=== PATIENT | male | born 1975 | race Caucasian/White ===

== ENCOUNTER 2023-03-10 02:59 | Inpatient (IN) | payer MEDICAID ==
[~2023-03-10] VITALS: Ht 177.8 cm; Wt 117.5 kg
[2023-03-10] MEDS ORDERED: LORazepam 2 MG TABLET PO PRN (04:00)
[2023-03-10] MEDS ORDERED: ZOLPIDEM TARTRATE 10 MG TABLET PO PRN (04:00)
[2023-03-10] MEDS ORDERED: HALOPERIDOL 5 MG TABLET PO PRN (04:00)
[2023-03-10 04:11] LABS: GLUCOMETER DEV NAME(LOC) POC.BV; POC SARS-COV2 AG, FIA NEGATIVE (NEGATIVE)
[2023-03-10 06:05] VITALS: BP 132/87; PULSE 74; RESP 17; TEMP 97.3; O2SAT 97
[2023-03-10] MEDS ORDERED: INFLUENZA VIRUS VACCINE QVS 2023-24 (6MO+)/PF 60 MCG/0.5 ML SYRINGE IM. ONE (06:45)
[2023-03-10] MEDS ORDERED: MAGNESIUM HYDROXIDE SUSPENSION 30 ML UDCUP PO PRN (07:30)
[2023-03-10] MEDS ORDERED: PETROLATUM,WHITE 28 GM JELLY TP PRN (07:30)
[2023-03-10] MEDS ORDERED: IBUPROFEN 600 MG TABLET PO PRN (07:30)
[2023-03-10] MEDS ORDERED: BACITRACIN 28 GM OINTMENT TP PRN (07:30)
[2023-03-10] MEDS ORDERED: LOPERAMIDE HCL 2 MG CAPSULE PO PRN (07:30)
[2023-03-10] MEDS ORDERED: BENZOCAINE/MENTHOL LOZENGE PO PRN (07:30)
[2023-03-10] MEDS ORDERED: MAG HYDROX/ALUMINUM HYD/SIMETH ES 30 ML SUSPENSION UDCUP PO PRN (07:30)
[2023-03-10] MEDS ORDERED: CloNIDine HCL 0.1 MG TABLET PO PRN (07:30)
[2023-03-10] MEDS ORDERED: DOCUSATE SODIUM 100 MG CAPSULE PO PRN (07:30)
[2023-03-10] MEDS ORDERED: ALBUTEROL SULFATE HFA 90 MCG/PUFF 8 GM INHALER IH PRN (07:30)
[2023-03-10] MEDS ORDERED: ONDANSETRON HCL 4 MG TABLET PO PRN (07:30)
[2023-03-10] MEDS ORDERED: OMEPRAZOLE 20 MG CAPSULE PO PRN (07:30)
[2023-03-10 09:46] VITALS: BP 136/83; PULSE 94; RESP 18; TEMP 97.7; O2SAT 99
[2023-03-10] MEDS: RisperiDONE 1 MG TABLET PO SCH (16:39)
[2023-03-10 20:41] VITALS: BP 117/77; PULSE 79; RESP 18; TEMP 97.8; O2SAT 98
[2023-03-11 07:44] LABS: BASOPHILS % (AUTO) 1.4 % (0.0-2.0); EOSINOPHILS % (AUTO) 1.6 % (1.0-6.0); HEMATOCRIT 40.7 % (41-53); HEMOGLOBIN 14.1 g/dL (13.5-17.5); LYMPHOCYTES # (AUTO) 1.3 K/uL (1.0-4.8); LYMPHOCYTES % (AUTO) 23.3 % (22.0-44.0); MEAN CORPUSCULAR HEMOGLOBIN 30.9 pg (26.0-34.0); MEAN CORPUSCULAR HGB CONC 34.8 G/dL (31.0-37.0); MEAN CORPUSCULAR VOLUME 89 fL (80-100); MONOCYTES # (AUTO) 0.3 K/uL (0.1-1.0); MONOCYTES % (AUTO) 6.3 % (2.0-9.0); NEUTROPHILS # (AUTO) 3.7 K/uL (1.8-7.7); NEUTROPHILS % (AUTO) 67.4 % (40.0-70.0); PLATELET COUNT (AUTO) 297 K/uL (150-450); RED BLOOD CELL COUNT(AUTO) 4.58 MIL/uL (4.50-5.90); RED CELL DISTRIBUTION WIDTH 14.2 % (11.5-14.5); WHITE BLOOD COUNT (AUTO) 5.4 K/uL (4.5-11.0)
[2023-03-11 07:54] LABS: HEMOGLOBIN A1C 5.3 % (3.8-5.6)
[2023-03-11 08:25] LABS: ALANINE AMINOTRANSFERASE 23 U/L (12-78); ALBUMIN 2.8 g/dL (3.4-5.0); ALKALINE PHOSPHATASE 89 U/L (46-116); ANION GAP 3 mmol/L (8-16); ASPARTATE AMINOTRANSFERASE 15 U/L (15-37); BILIRUBIN,TOTAL 0.3 mg/dL (0.1-1.0); CALCIUM, TOTAL 8.3 mg/dL (8.8-10.5); CARBON DIOXIDE 34 mmol/L (22-29); CHLORIDE 105 mmol/L (98-107); CHOL/HDL RATIO 3.8 (4.2-7.3); CHOLESTEROL 180 mg/dL (131-200); CREATININE 0.91 mg/dL (0.60-1.30); FREE T4 (FREE THYROXINE) 1.11 ng/dL (0.76-1.46); GLOMERULAR FILTR. RATE CALC > 60 mL/min (>60); GLUCOSE,RANDOM 98 mg/dL (70-110); HDL CHOLESTEROL 47 mg/dL (40-60); LDL CHOL (CALC.) 113 mg/dL (0-130); POTASSIUM 3.4 mmol/L (3.5-5.1); SODIUM SERUM 142 mmol/L (136-145); THYROID STIMULATING HORMONE 1.22 uIU/mL (0.36-3.74); TOTAL PROTEIN, SERUM 6.7 g/dL (6.4-8.2); TRIGLYCERIDES 102 mg/dL (15-150); UREA NITROGEN, BLOOD 8 mg/dL (7-18)
[2023-03-11 08:35] VITALS: BP 140/84; PULSE 81; RESP 18; TEMP 97.6; O2SAT 99
[2023-03-11] MEDS: RisperiDONE 1 MG TABLET PO SCH ×2 (08:35→16:46)
[2023-03-11 20:15] VITALS: BP 135/80; PULSE 78; RESP 19; TEMP 98; O2SAT 98
[2023-03-12 07:58] LABS: APPEARANCE,URINE TURBID (CLEAR); BILIRUBIN,URINE NEGATIVE (NEGATIVE); COLOR,URINE YELLOW (YELLOW); GLUCOSE, URINE (UA) NEGATIVE (NEGATIVE); KETONES,URINE NEGATIVE (NEGATIVE); LEUKOCYTE ESTERASE ,URINE NEGATIVE (NEGATIVE); NITRATE,URINE NEGATIVE (NEGATIVE); OCCULT BLOOD,URINE NEGATIVE (NEGATIVE); PH,URINE 7.5 (5.0-8.0); PH,URINE DRUG SCREEN 7.5 (5.0-8.0); PROTEIN,URINE TRACE mg/dL (NEGATIVE); SPECIFIC GRAVITIY, URINE 1.016 (1.003-1.030); UROBILINOGEN,URINE <=1.0 mg/dL (<=1.0)
[2023-03-12 08:02] VITALS: BP 142/97; PULSE 92; RESP 18; TEMP 98.3; O2SAT 99
[2023-03-12 08:11] LABS: ALCOHOL, URINE DRUG SCREEN NEGATIVE (NEGATIVE); AMPHET/METH SCREEN,URINE NEGATIVE (NEGATIVE); BARBITURATE SCREEN, URINE NEGATIVE (NEGATIVE); BENZODIAZEPINES SCREEN,URINE NEGATIVE (NEGATIVE); CANNABINOID SCREEN,URINE NEGATIVE (NEGATIVE); COCAINE SCREEN,URINE NEGATIVE (NEGATIVE); METHADONE SCREEN, URINE NEGATIVE (NEGATIVE); OPIATE SCREEN,URINE NEGATIVE (NEGATIVE); PHENCYCLIDINE SCREEN,URINE NEGATIVE (NEGATIVE)
[2023-03-12] MEDS: RisperiDONE 1 MG TABLET PO SCH ×2 (08:18→16:41)
[2023-03-12 20:40] VITALS: BP 140/83; PULSE 90; RESP 18; TEMP 98.2; O2SAT 96
[2023-03-13] MEDS: RisperiDONE 1 MG TABLET PO SCH ×2 (08:03→16:36)
[2023-03-13 08:27] VITALS: BP 138/80; PULSE 111; RESP 18; TEMP 97.6; O2SAT 96
[2023-03-13 20:11] VITALS: BP 138/81; PULSE 88; RESP 18; TEMP 97.9
[2023-03-14 08:49] VITALS: BP 135/84; PULSE 93; RESP 18; TEMP 98; O2SAT 100
[2023-03-14] MEDS: RisperiDONE 1 MG TABLET PO SCH ×2 (09:39→16:05)
[2023-03-14 15:39] VITALS: BP 147/85; PULSE 95; RESP 17; TEMP 97.8; O2SAT 99
[2023-03-14] MEDS: ACETAMINOPHEN 325 MG TABLET PO PRN (20:13)
[2023-03-14 20:16] VITALS: RESP 18
[2023-03-14 21:13] VITALS: RESP 17
[2023-03-15 08:13] VITALS: BP 114/73; PULSE 89; RESP 18; TEMP 97.6; O2SAT 97
[2023-03-15] MEDS: RisperiDONE 1 MG TABLET PO SCH ×2 (09:52→16:14)
[2023-03-15 18:27] VITALS: RESP 18
[2023-03-15] MEDS: ACETAMINOPHEN 325 MG TABLET PO PRN (18:28)
[2023-03-15 20:00] VITALS: BP 116/73; PULSE 90; RESP 18; TEMP 98.2; O2SAT 97
[2023-03-16 08:57] VITALS: BP 130/87; PULSE 95; RESP 17; TEMP 98; O2SAT 100
[2023-03-16] MEDS: RisperiDONE 1 MG TABLET PO SCH (09:01)
[2023-03-16] MEDS ORDERED: RISP1TAB98 PO (12:19)
== END 2023-03-16 12:50 | disposition home or self-care (01) | DRG 754 ==
LOC: B2S 03:43
PROVIDERS: ADMIT Psychiatry & Neurology Psychiatry; ATTEND Psychiatry & Neurology Psychiatry
DX: F32.9 Major depressive disorder, single episode, unspecified (principal); R45.851 Suicidal ideations; F41.9 Anxiety disorder, unspecified; I10 Essential (primary) hypertension; G47.00 Insomnia, unspecified; Z20.822 Contact with and (suspected) exposure to COVID-19; M54.9 Dorsalgia, unspecified; K21.9 Gastro-esophageal reflux disease without esophagitis; F19.10 Other psychoactive substance abuse, uncomplicated; E66.9 Obesity, unspecified; Z59.00 Homelessness unspecified; Z68.37 Body mass index [BMI] 37.0-37.9, adult
CPT/HCPCS: 80053; 80061; 80307; 81003; 83036; 84439; 84443; 85025